=== PATIENT | female | born 1960 | race Caucasian/White ===

== ENCOUNTER 2017-01-09 07:54 | Day surgery (SDC) | payer OTHER ==
[~2017-01-09] VITALS: Ht 170.2 cm; Wt 74.8 kg
[~2017-01-09 07:54] MED LIST: ERGO400T3 PO; ESTR42.52 VG; GLUC100016 PO; MULT-1018 PO; Sodium Chloride LOK Flush 10 mL Syringe IV PRN; VARE0.5T PO; fentaNYL-PF 50 mCg/mL 2 mL Inj IVPUSH PRN
[2017-01-09] MEDS ORDERED: TAGAMET PO (08:07)
[2017-01-09 08:08] VITALS: BP 135/92; PULSE 69; RESP 16; O2SAT 98
[2017-01-09] MEDS: 0.9% Sodium Chloride 1,000 ML IV SCH ×3 (08:13→09:07)
[2017-01-09 09:11] VITALS: BP 134/83; PULSE 67; RESP 13; O2SAT 94
[2017-01-09 09:19] VITALS: BP 121/81; PULSE 70; RESP 16; O2SAT 98
--- NOTE | 2017-01-09 09:59 | ENDO ---
[address] [address] ENDOSCOPY PROCEDURE PATIENT: BERT CARRASCO : 1960 MR#: [id number] ADMIT: 01/09/2017 JOB ID: [id number] DATE: 01/09/2017 PRIMARY PROVIDER: Tomasa Dial PROCEDURE: Esophagogastroduodenoscopy with biopsy. INDICATIONS: A 56-year-old female with longstanding reflux. She uses cimetidine about four days a week and regular Tums. EQUIPMENT: GIF H 180 J. SEDATION: 1. 5 mg Versed. 2. 100 mcg fentanyl. COMPLICATIONS: None identified. PROCEDURAL INFORMATION: After the risks and benefits were explained, written and verbal informed consent was obtained. The patient was brought into the endoscopy suite and placed into the left lateral decubitus position. Sedation was achieved as above. The scope introduced into the mouth, the bite block, and advanced to the second portion of the duodenum. The scope was slowly withdrawn to carefully examine the mucosa for any defects or lesions. Retroflexed views were accomplished in the stomach. The stomach was decompressed. The scope removed from the patient who tolerated the procedure well. FINDINGS: 1. Duodenum: Scant erosion in the duodenal bulb. No ulcers. No mass lesions. No other pathology. 2. Stomach: Mild gastropathy with very subtle erosive features in the antrum. A diminutive polyp in the body was biopsied for histopathology and exclusion of H pylori infection. Otherwise, retroflexed views of the LES were unremarkable. 3. Esophagus: The squamocolumnar junction generally correlated with the top of the gastric folds. The GEJ was at about 36 cm from the incisors. However, there was possibly an extension of the squamocolumnar junction into the tubular esophagus by about 0.5 cm (C0, M 0.5). This area was targeted for biopsy. I did not appreciate any evidence of acute erosive features. The remainder of the esophagus was unremarkable. There was a subtle sliding hiatal hernia. ENDOSCOPIC DIAGNOSES: 1. Subtle sliding hiatal hernia. 2. 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 3. Gastric polyp. 4. Erosive gastroduodenopathy. RECOMMENDATIONS: 1. Await histopathology. 2. If Helicobacter is present, it will need to be eradicated with standard triple therapy. 3. If Dejesus epithelium is confirmed, repeat EGD in 9-12 months. 4. Continue anti reflux regimen.
--- NOTE | 2017-01-11 17:33 | PATH ---
SURGICAL PATHOLOGY Attending Physician:Jennifer Barclay CASE STATUS: Signed Out PATIENT NAME: BERT CARRASCO PID: [id number] : 1960 DATE COLLECTED:01/09/2017 17:02 SPECIMEN: 1: Esophagus, Biopsy 2: Stomach, Polyp, Biopsy CLINICAL HISTORY: 1. GEJ BXS 2. GASTRIC POLYP R/O H.PYLORI FINAL DIAGNOSIS: 1.GASTROESOPHAGEAL JUNCTION, BIOPSIES: COLUMNAR MUCOSA WITH MILD ACTIVE INFLAMMATION. Negative for intestinal metaplasia. Negative for dysplasia and malignancy. 2.STOMACH, POLYP, BIOPSY: POLYPOID BODY-TYPE MUCOSA WITH FOCAL FEATURES SUGGESTIVE OF BENIGN GASTRIC XANTHOMA, SEE COMMENT. Negative for Helicobacter organisms. Negative for dysplasia or malignancy. ICD10 R10.9 NOTE: 2. A limited panel of immunohistochemical stains was performed to evaluate the gastric polyp. All control stains showed appropriate reactivity. Results: ANNETTA: Negative PAX8: Negative CD68: Rare positive cells Interpretation: Rare positive cells are positive for CD68 at the periphery of the biopsy; however, the majority of the area of interest has been cut through and is not as apparent in the levels used for this stain. 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 There is no evidence of an invasive carcinoma. This test was developed and its performance characteristics determined by [employer]. It has not been cleared or approved by the [place]. Food and Drug Administration. The FDA has determined that such clearance or approval is not necessary. This test is used for clinical purposes. It should not be regarded as investigational or for research. GROSS DESCRIPTION: The specimen is received in two formalin filled containers labeled with the patient's name. 1). The specimen is labeled " GEJ " and consists of a 0.2 x 0.2 x 0.2 CM portion of tissue which is entirely submitted in cassette 1A. 2). The specimen is labeled "gastric polyp" and consists of a 0.3 x 0.3 x 0.3 CM portion of tissue which is entirely submitted in cassette 2A. 01/09/2017DC MICRO DESCRIPTION: See diagnosis. ICD-9 CODES: CPT CODES: 1: 39483 2: 98148, 67763, 94668, 06790 Electronically Signed Out Lyly Hernandez MD [facility] [address], [place] [address] Technical component performed at [facility], [address], [place], [address]
== END 2017-01-09 23:59 | disposition home or self-care (01) ==
LOC: END 07:54
PROVIDERS: ATTEND Internal Medicine Gastroenterology
DX: K31.7 Polyp of stomach and duodenum (principal); K31.9 Disease of stomach and duodenum, unspecified; K44.9 Diaphragmatic hernia without obstruction or gangrene; K21.9 Gastro-esophageal reflux disease without esophagitis; G43.909 Migraine, unspecified, not intractable, without status migrainosus; F17.210 Nicotine dependence, cigarettes, uncomplicated
CPT/HCPCS: 43239; G0500; J2250; J3010; J7030